=== PATIENT | male | born 1955 | race Two or more races ===

== ENCOUNTER 2022-10-13 18:13 | Emergency (ER) | payer OTHER ==
[~2022-10-13] VITALS: Ht 165.1 cm; Wt 64.9 kg
[2022-10-13] MEDS ORDERED: LANTUS SOL100 UNIT/1 SUBCUTANEO (18:36)
[2022-10-13] MEDS ORDERED: GLUMETZA1000 MG PO (18:36)
[2022-10-13] MEDS ORDERED: LOTREL 5-10 MG1 CAP PO (18:37)
[2022-10-13] MEDS ORDERED: ZOCOR40 MG PO (18:37)
[2022-10-13] MEDS ORDERED: HORIZANT300 MG PO (18:38)
== END 2022-10-13 22:00 | disposition home or self-care (01) ==
LOC: ER 18:13
DX: R07.89 Other chest pain (principal); R55 Syncope and collapse; E11.9 Type 2 diabetes mellitus without complications; Z79.84 Long term (current) use of oral hypoglycemic drugs; I10 Essential (primary) hypertension; Z88.0 Allergy status to penicillin